=== PATIENT | female | born 1970 ===

== ENCOUNTER 2019-01-18 12:55 | Emergency (ER) | payer SELFPAY ==
--- NOTE | 2019-01-18 15:36 | Event Note ---
ED Screening Note Date of service: 01/18/19 Time: 15: ED Screening Note: 48 year old female presents c/o left low back pain radiating into left low leg into left knee. Onset thursday. No injury or trauma. Reports numbness in left thigh down to knee. Denies bowel or bladder incontinence or leg weakness. She went to urgent care thursday and was prescribed motrin and gabapentin without relief. She reports no other symptoms. This initial assessment/diagnostic orders/clinical plan/treatment(s) is/are subject to change based on patients health status, clinical progression and re- assessment by fellow clinical providers in the ED. Further treatment and workup at subsequent clinical providers discretion. Patient/guardian urged not to elope from the ED as their condition may be serious if not clinically assessed and managed. Initial orders include: Lspine xray Decadron
[2019-01-18] MEDS ORDERED: dexAMETHasone 20 MG/5 ML VIAL IM ONE (15:38)
[2019-01-18] MEDS ORDERED: KETOROLAC 60 MG/2 ML INJ IM ONE (17:31)
--- NOTE | 2019-01-18 17:37 | Emergency Department Report ---
ED Extremity Problem HPI - General Chief complaint: Extremity Problem,Nontraumatic Stated complaint: L LEG PAIN Time Seen by Provider: 01/18/19 15:18 Source: patient, contact lens edge buffer (Li, patient personal financial representative) Mode of arrival: Ambulatory Limitations: No Limitations - History of Present Illness Initial comments: Patient is a 42-year-old female presents emergency room with complaints of left hip pain that radiates into her left knee that began 4 days ago. Patient denies any fall or injury. She denies any swelling in the leg. Patient states that she has tingling in the left leg from the hip to the knee occasionally. she denies any back pain. She denies any weakness or bowel or bladder incontinence. Patient states that she went to the doctor 3 days ago and was prescribed Robaxin, ibuprofen, gabapentin which she states is helping some but not completely relieving her symptoms. - Related Data Previous Rx's Medication Instructions Recorded Last Taken Type Cyclobenzaprine [Flexeril] 10 mg PO QHS PRN #12 tablet 01/18/19 Unknown Rx Allergies Allergy/AdvReac Type Severity Reaction Status Date / Time No Known Allergies Allergy Verified 01/18/19 12:59 ED Review of Systems ROS: Stated complaint: L LEG PAIN Other details as noted in HPI Comment: All other systems reviewed and negative ED Past Medical Hx - Past Medical History Previous Medical History?: Yes Additional medical history: hypotension - Surgical History Past Surgical History?: Yes Hx Cholecystectomy: Yes Additional Surgical History: - Social History Smoking Status: Never Smoker Substance Use Type: None - Medications Home Medications: Home Medications Medication Instructions Recorded Confirmed Last Taken Type Cyclobenzaprine [Flexeril] 10 mg PO QHS PRN #12 tablet 01/18/19 Unknown Rx ED Physical Exam - General Limitations: No Limitations General appearance: alert, in no apparent distress - Head Head exam: Present: atraumatic, normocephalic - Eye Eye exam: Present: normal appearance - ENT ENT exam: Present: mucous membranes moist - Extremities Exam Extremities exam: Present: other (TTP over the left lateral hip and point tenderness to the left lateral knee, no edema of the LLE, FROM Of the LLE, neurovascularly intact, no joint laxity of the LLE) - Back Exam Back exam: Present: normal inspection, full ROM. Absent: paraspinal tenderness, vertebral tenderness - Neurological Exam Neurological exam: Present: alert, oriented X3 - Psychiatric Psychiatric exam: Present: normal affect, normal mood - Skin Skin exam: Present: warm, dry, intact ED Course Vital Signs 01/18/19 01/18/19 13:02 18:42 Temperature 98.5 F Pulse Rate 62 60 Respiratory 18 18 Rate Blood Pressure 137/81 Blood Pressure 140/86 [Left] O2 Sat by Pulse 96 100 Oximetry ED Medical Decision Making - Medical Decision Making Patient is a 42-year-old female presents emergency room with complaints of left hip pain that radiates into her left knee that began 4 days ago. Patient denies any fall or injury. She denies any swelling in the leg. Patient states that she has tingling in the left leg from the hip to the knee occasionally. she denies any back pain. She denies any weakness or bowel or bladder incontinence. Patient states that she went to the doctor 3 days ago and was prescribed Robaxin, ibuprofen, gabapentin which she states is helping some but not completely relieving her symptoms. VSS. on exam: TTP over the left lateral hip and point tenderness to the left lateral knee, no edema of the LLE, FROM Of the LLE, neurovascularly intact, no joint laxity of the LLE. examination consistent with IT band syndrome/muscle strain. pt given dexamethasone and toradol injection and symptoms improved. advised pt to please stop taking Robaxin and begin taking Flexeril. Do not drive or operate heavy machinery while taking muscle relaxer due to potential for drowsiness. May use ice pack, heating pad, rest, epsom salt bath. May do stretches. Follow-up with an orthopedic doctor if symptoms are not improving. return to the emergency room for any new or worsening symptoms. pt given handout on IT band stretching. slovenian interpretation for HPI, physical exam, disposition, and instructions by Li, patient personal financial representative - Differential Diagnosis strain, sprain, tendonitis, ligament injury, IT band syndrome Critical care attestation.: If time is entered above; I have spent that time in minutes in the direct care of this critically ill patient, excluding procedure time. ED Disposition Clinical Impression: IT band syndrome Qualifiers: Laterality: left Qualified Code(s): M76.32 - Iliotibial band syndrome, left leg Disposition: TO HOME OR SELFCARE Is pt being admited?: No Does the pt Need Aspirin: No Condition: Stable Instructions: Muscle Strain (ED) Additional Instructions: Please stop taking Robaxin and begin taking Flexeril. Do not drive or operate heavy machinery while taking muscle relaxer due to potential for drowsiness. May use ice pack, heating pad, rest, epsom salt bath. May do stretches. Follow-up with an orthopedic doctor if symptoms are not improving. return to the emergency room for any new or worsening symptoms. Deje de amadou Robaxin y comience a amadou Flexeril. No conduzca ni maneje maquinaria pesada mientras est tomando un relajante muscular debido a la posibilidad de somnolencia. Puede usar bolsa de hielo, almohadilla trmica, descanso, tona de belem de epsom. Puede hacer estiramientos. Blaire un seguimiento con un mdico ortopdico si los sntomas no mejoran. Regrese a la bharti de emergencias por cualquier sntoma nuevo o que empeore. Prescriptions: Cyclobenzaprine [Flexeril] 10 mg PO QHS PRN #12 tablet PRN Reason: Muscle Spasm Referrals: SOLOMON SOARES MD [Staff Physician] - 2-3 Days Forms: Work/School Release Form(ED) Time of Disposition: 17:37 Print Language: [id number]
[2019-01-18 18:43] VITALS: BP 140/86
== END 2019-01-18 18:41 | disposition home or self-care (01) ==
LOC: ED 12:55
DX: M76.32 Iliotibial band syndrome, left leg (principal); Z90.49 Acquired absence of other specified parts of digestive tract; Z79.899 Other long term (current) drug therapy
CPT/HCPCS: 96372; 99282; J1100